=== PATIENT | female | born 1940 | race Caucasian/White ===

== ENCOUNTER 2016-10-11 20:00 | Observation (INO) | payer MEDICARE, MEDICAID ==
[~2016-10-11] VITALS: Ht 162.6 cm; Wt 50.5 kg
[~2016-10-11 20:00] MED LIST: AMLO10TA3; ATOR40TA69 PO; BISM262T15 PO; CITA10TA9 PO; LISI40TA PO; LORA-302 PO
[2016-10-11 20:20] VITALS: BP 189/97; PULSE 79; RESP 14; O2SAT 97
--- NOTE | 2016-10-11 20:28 | ED.REPORT ---
HPI-General Illness Date of Service Oct 11, 2016 ED Provider: Brisa Zaragoza MD This is a 75 year old female history of hypertension, hyperlipidemia, depression , chronic kidney disease brought to the ED by EMS complaining of visual hallucinations that began today. Pt states she normally experiences auditory hallucinations but had visual hallucinations which she has never experienced previously. State she saw a "creature with some kind of costume." She thought the hallucination was real and saw the creature for a few minutes, the creature then "went out the door." Denies suicidal ideation or homicidal ideation. Denies pain. Pt recently started Seroquel. Nursing Notes Stated Complaint: HALLUCINATING Chief Complaint: General Complaint Nursing Notes Reviewed: Yes Allergies: Coded Allergies: diazepam (Verified Allergy, Unknown, 05/25/16) Scheduled Amlodipine (Amlodipine) 10 Mg Tablet 10 MG DAILY Atorvastatin Calcium (Atorvastatin Calcium) 40 Mg Tablet 40 MG PO HS Citalopram (Citalopram) 10 Mg Tablet 10 MG PO DAILY Lisinopril (Lisinopril) 40 Mg Tablet 40 MG PO DAILY Scheduled PRN Bismuth Subsalicylate (Pepto-Bismol) 262 Mg Tab.chew 262 MG PO PRN PRN PRN For Diarrhea or Loose Stool Lorazepam (Ativan) 0.5 Mg Tablet 0.5 MG PO PRN For Anxiety General Time Seen by MD: 20:22 Chief Complaint Other Hx Obtained From: Patient Arrived By: Walk-in Sudden in Onset?: Yes Onset Occurred: 5 - 8 hours ago Symptom Duration: Since onset Severity: Current: No pain currently Pertinent Negative: Pt denies other symptoms Recent Healthcare: No recent doctor visit, No recent hospitalization Similar Sx Previous: No Past Medical History Past Medical History history of acute kidney injury with hyperkalemia, with suspected baseline chronic kidney disease Reports: Hyperlipidemia, Hypertension Reports: Depression Past Surgical History Reports: Tubal ligation Smoking History Former Smoker Social History Alcohol Use: Denies alcohol use Other Social History: Lives alone, Local resident Ambulatory Status Independent Review of Systems Full Review of Systems Constitutional: Denies: Chills, Fever Respiratory: Denies: Shortness of breath Cardiovascular: Denies: Chest pain GI: Denies: Abdominal pain, Nausea, Vomiting Neurologic: Denies: Headache Psychiatric: Reports: Hallucinations, auditory, Hallucinations, visual Complete sys rev & neg: except as marked. Physical Exam Vital Signs Vital Signs Date Time Temp Pulse Resp B/P Pulse Ox O2 Delivery O2 Flow Rate FiO2 10/11/16 20:20 36.5 79 14 189/97 97 Room Air Initial VS: Reviewed ENT: Mucous membranes moist, Conjunctiva normal, No scleral icterus Neck: Supple, Non-tender, Full range of motion Respiratory: Breath sounds normal, Clear to auscultation, No respiratory distress Cardiovascular: Regular rate & rhythm, Heart sounds normal, Intact distal pulses Abdomen / GI: Soft, Non-tender, No guarding, No rebound, No distention Extremities: Vascular intact, Neuro intact, No swelling, No tenderness Skin: Warm, Dry, No cyanosis Neurologic: Alert, Oriented, Nonfocal General/Constitutional: Awake Psychiatric: Not suicidal, Not homicidal Interpretation & Diagnostics Interpretation & Diagnostics: CHEST X-RAY IMPRESSION: No acute cardiopulmonary disease. Dictated by: Luis Alberto Brandt M.D. on 10/11/2016 at 21:28 Approved by: Luis Alberto Brandt M.D. on 10/11/2016 at 21:[address] IMPRESSION: 1. No acute intracranial abnormalities. 2. Multiple nonacute bilateral basal ganglia lacunar infarcts. Dictated by: Luis Alberto Brandt M.D. on 10/11/2016 at 21:47 Approved by: Luis Alberto Brandt M.D. on 10/11/2016 at 21:49 Lab Results Interpretation Result Diagram: 10/11/16211510/11/162115 Test 10/11/16 20:37 10/11/16 21:12 10/11/16 21:16 Hold Urine Received (Received) Urine Color Straw (YELLOW) Urine Appearance Clear (CLEAR,HAZY) Urine pH 7.0 (5.0-8.0) Urine Specific Sidell 1.015 (1.003-1.035) Urine Protein Negativemg/dL (NEG,TRACE) Urine Glucose (UA) Negativemg/dL (NEGATIVE) Urine Ketones Negativemg/dL (NEGATIVE) Urine Occult Blood Trace (NEGATIVE) Urine Nitrite Negative (NEGATIVE) Urine Bilirubin Negative (NEGATIVE) Urine Urobilinogen Normalmg/dL (NORMAL) Urine Leukocyte Esterase Small (NEGATIVE) Urine RBC 0-2/hpf (0-2) Urine WBC 0-5/hpf (0-5) Urine Epithelial Cells Few/hpf (NONE-MOD) Urine Crystals None seen (NONE SEEN) Urine Bacteria Few/hpf (NONE-FEW) Urine Hyaline Casts None/lpf (NONE) Urine Granular Casts None seen (NONE SEEN) Urine Waxy Casts None seen (NONE SEEN) Urine Red Blood Cell Casts None seen (NONE SEEN) Urine White Blood Cell Casts None seen (NONE SEEN) Urine Mucus None seen (None Seen) Urine Trichomonas None seen (NONE SEEN) Urine Yeast None (NONE SEEN) Urinalysis Comment Amorphous sediment Urine Culture Reflexed Indicated White Blood Count 6.3th/mm3 (3.8-10.1) Red Blood Count 4.70mil/mm3 (3.90-5.20) Hemoglobin 13.5g/dL (12.0-15.6) Hematocrit 40.5% (35.0-46.0) Mean Corpuscular Volume 86.2fL (81-100) Mean Corpuscular Hemoglobin 28.7pg (27.0-35.0) Mean Corpuscular Hemoglobin Concent 33.3% (32.0-37.0) Red Cell Distribution Width 12.8% (12.3-15.4) Platelet Count 233bil/L (150-400) Neutrophils (%) (Auto) 59.9% (40-74) Lymphocytes (%) (Auto) 26.6% (14-46) Monocytes (%) (Auto) 9.9% (4-12) Eosinophils (%) (Auto) 2.9% (0-5) Basophils (%) (Auto) 0.5% (0-3) Hold Blue Top Tube Received (Received) Sodium Level 140mEq/L (134-144) Potassium Level 3.4mEq/L (3.5-5.2) Chloride Level 100mEq/L (97-108) Carbon Dioxide Level 25mmol/L (18-29) Blood Urea Nitrogen 18mg/dL (8-27) Creatinine 0.70mg/dL (0.57-1.00) Estimat Glomerular Filtration Rate 117mL/min (>59) Glucose Level 170mg/dL (60-99) Calcium Level 9.2mg/dL (8.5-10.1) Total Bilirubin 0.3mg/dL (0.0-1.2) Aspartate Amino Transf (AST/SGOT) 19U/L (0-50) Alanine Aminotransferase (ALT/SGPT) 13U/L (0-32) Alkaline Phosphatase 134U/L (25-165) Total Protein 6.9g/dL (6.4-8.4) Albumin 3.9g/dL (3.4-5.0) Hold Rojas Top Tube Received (Received) Re-Eval/Medical Decision Med Decision/Clinical Course 75-year-old female with past medical history of hypertension and hyperlipidemia along with psychiatric disorder who was recently started on Seroquel here with visual hallucination which is not normal for her. Differential diagnosis includes but is not limited to urinary tract infection versus pneumonia versus electrolyte abnormality versus brain mass. Chest x-rays unremarkable. Brain CT shows multiple remote lacunar infarcts but nothing acute. CBC and CMP are unremarkable, and there is no evidence of urinary tract infection. Patient lives alone, and has no family. At this time, given her social situation, I do not feel she is safe to go home. She has been admitted by hospitalist to workup for delirium. She is aware and amenable to admission. Time of Eval: 22:52 Re-Evaluation/Progress Note: Discussed lab and imaging results. Plan for admission Consultation : Referral / Consult Name: Xavier Crum MD Consulted With: Hospitalist Call Returned at: 22:47 Vocational Technical Education Director: Accepts admit Counseled Regarding: Diagnosis, Lab results, Need for follow-up, Need for admission Discharge & Departure Primary Impression: Visual hallucination Disposition: ADMITTED TO HOSPITAL Discharge Condition All VS Reviewed: Yes Condition: Stable Referrals: Walker Miller DO (PCP) Scribe Attestation Portions of this note were transcribed by Alvin Harvey. I, Dr. Zaragoza personally performed the history, physical exam and medical decision-making; I reviewed and confirmed the accuracy of the information in the transcribed note. Signed by: Alvin Harvey. 10/11/2016, 23:00. Brisa Zaragoza MD Oct 11, 2016 20:28 ALVIN HARVEY Oct 11, 2016 20:34
[2016-10-11 21:24] LABS: BASOPHILS % (AUTO) 0.5 % (0-3); EOSINOPHILS % (AUTO) 2.9 % (0-5); MONOCYTES % (AUTO) 9.9 % (4-12); Mean Corpuscular Hemoglobin 28.7 pg (27.0-35.0); Mean Corpuscular Volume 86.2 fL (81-100); NEUTROPHILS % (AUTO) 59.9 % (40-74); Platelet Count 233 bil/L (150-400)
[2016-10-11 21:30] LABS: APPEARANCE,URINE CLEAR (CLEAR,HAZY); COLOR,URINE STRAW (YELLOW); OCCULT BLOOD,URINE TRACE (NEGATIVE); UROBILINOGEN,URINE NORMAL (NORMAL)
--- NOTE | 2016-10-11 21:34 | DRSVH ---
PROCEDURE: X-RAY CHEST ONE VIEW, PORTABLE ([id number]) INDICATIONS: 75 year-old female with altered mental status and hallucinations. TECHNIQUE: One view of the chest was acquired. COMPARISON: [facility], CR, XR CHEST 1VW (PORTABLE), 06/17/2016, 11:18. FINDINGS: Surgical changes and devices: None. Lungs and pleura: No pleural effusions or pneumothorax. Lungs are clear. Mediastinum: Mediastinal contours appear normal. Heart size is normal. There is aortic atheroscler osis. Bones and chest wall: No suspicious bony lesions. Overlying soft tissues appear unremarkable. IMPRESSION: No acute cardiopulmonary disease. Dictated by: Luis Alberto Brandt M.D. on 10/11/2016 at 21:28 Approved by: Luis Alberto Brandt M.D. on 10/11/2016 at 21:28
--- NOTE | 2016-10-11 21:56 | DRSVH ---
PROCEDURE: CT BRAIN WITHOUT CONTRAST ([id number]) INDICATIONS: 75 year-old female with visual hallucinations. TECHNIQUE: Noncontrast 4.5 mm thick angled axial sections acquired from the foramen magnum to the vertex, with c oronal reformats. COMPARISON: None. FINDINGS: Image quality: Excellent. CSF spaces: Basal cisterns are patent. No extra-axial fluid collections. The ventricles are symmet alonso in size and shape. Brain: No intracranial bleeds or masses. There are mild periventricular and deep white matter chron ic small vessel ischemic changes. Multiple small bilateral nonacute basal ganglia lacunar infarcts a re present. There is intracranial internal carotid and vertebral artery atherosclerosis. Skull and face: Calvarium and visualized facial bones appear intact, without suspicious lesions. Sinuses: Visualized sinuses and mastoids are clear. IMPRESSION: 1. No acute intracranial abnormalities. 2. Multiple nonacute bilateral basal ganglia lacunar infarcts. Dictated by: Luis Alberto Brandt M.D. on 10/11/2016 at 21:47 Approved by: Luis Alberto Brandt M.D. on 10/11/2016 at 21:49
[2016-10-12] MEDS ORDERED: Alum-Mag Hydrox-Simeth 30 mL Suspension PO PRN ×2 (00:05→01:30)
[2016-10-12] MEDS ORDERED: Ondansetron 2 mg/mL 2 mL Inj IVPUSH PRN ×2 (00:05→01:30)
--- NOTE | 2016-10-12 00:30 | NUR ---
Admit Received report from Grazyna SMITH RN, pt arrived via [employer], transferred sba/1pa w/cane to bed. Dx Visual hallucinations, R/T UTI vs new start on Seroquel! Currently w/o visual hallucinations though states does suffer from auditory hallucinations.Skin unremarkable, slightly [place], some missing teeth, and wears glasses , admission complete w/exception of med rec wasn't able to bring list she has at [facility]. here to assess Addendum: 10/12/16 at 0219 by PRIMO GRECO RN New orders for P.O. K+ and prn labetalol SBP> 165 @ >190 given first dose
[2016-10-12 00:35] VITALS: BP 195/93; PULSE 73; RESP 18; O2SAT 95
[2016-10-12] MEDS ORDERED: Polyethylene Glycol (PEG) 17 Gm Powder PO PRN (01:30)
[2016-10-12] MEDS ORDERED: Labetalol 5 mg/mL 4 mL Inj IVPUSH ONE (01:40)
[2016-10-12] MEDS ORDERED: Potassium Chloride 20 mEq SR Tablet PO ONE (01:45)
[2016-10-12] MEDS ORDERED: Glucose 40% Oral Gel 15 Gm Tube PO PRN (01:45)
--- NOTE | 2016-10-12 02:00 | PCM.HPMED ---
Subjective Date of Service Oct 12, 2016 Primary Provider: Admitting Physician: Xavier Crum MD Primary Care Physician: Walker Miller DO Attending Physician: Xavier Crum MD Admit Status: From the Emergency Department Chief Complaint: Visual hallucination, lives alone by herself History of Present Illness: This is a 75 Y/O Fwith Hx of HTN on amlodipine 10 mg daily, and lisinopril 40 mg tablets daily, hyperlipidemia currently not on statin medication, depression/ anxiety on citalopram and recently stopped Seroquel, and chronic kidney disease , who presented to the [facility] ED by EMS with complaint of visual hallucinations and set today. Of note Pt states she normally experiences auditory hallucinations. She denies ever having experienced visual hallucinations in the past however. Patient states that she saw two young people dressed in what she described as an opaque plastic costume. She states that the individuals were somehow not visible and yet she knew they were there because she heard them whispering. " She thought the hallucination was real and lasted a Denies suicidal ideation or homicidal ideation. Pt recently started Seroquel about 3 weeks. She states that the medication was giving her nightmares, she states that the Seroquel caused her to have suicidal ideation. Prior however stopped the medication just yesterday. Patient has described constipation for the past 2 days and last bowel movement was 2 days ago. She states that she has been experiencing headaches with last one occurring just yesterday. Patient currently denies pain, suicidal ideation, fevers, cough, nausea, vomiting, abdominal pain. Vital signs in ED, temperature 86.5, pulse 79, blood pressure 189/97, respiratory rate 14, pulse ox 97% on room air. Hemogram: WBCs 6.3, hemoglobin 13.5, hematocrit 40.5, platelets 233 Chemistry panel: Potassium low at 3.4, glucose high at 170, creatinine 0.70, sodium 140, chloride 100, CO2 25, calcium 9.2, otherwise normal chemistry panel UA significant for trace occult blood, small leukocyte esterase, few epithelial cells, few bacteria. Chest x-ray showed no acute cardiopulmonary disease, Brain CT no acute intracranial abnormality,multiple nonacute bilateral basal ganglia lacunar infarcts Review of Systems: A comprehensive review of systems was conducted and was negative except as mentioned in history of present illness. Allergies Coded Allergies: diazepam (Verified Allergy, Unknown, 05/25/16) Home Medications Amlodipine (Amlodipine) 10 Mg Tablet 10 MG DAILY Atorvastatin Calcium (Atorvastatin Calcium) 40 Mg Tablet 40 MG PO HS Citalopram (Citalopram) 10 Mg Tablet 10 MG PO DAILY Lisinopril (Lisinopril) 40 Mg Tablet 40 MG PO DAILY Scheduled PRN Bismuth Subsalicylate (Pepto-Bismol) 262 Mg Tab.chew 262 MG PO PRN PRN PRN For Diarrhea or Loose Stool Lorazepam (Ativan) 0.5 Mg Tablet 0.5 MG PO PRN For Anxiety PMH History of acute kidney injury with hyperkalemia, with suspected baseline chronic kidney disease Hyperlipidemia, Hypertension Depression Auditory hallucinations Agoraphobia anxiety Surgical History Tubal ligation Social History Hx Alcohol Use: No Hx Substance Use: No Smoking Status: Former Smoker Living Arrangement: Alone Exam Vital Signs Vital Sign - Last Date Time Temp Pulse Resp B/P Pulse Ox O2 Delivery O2 Flow Rate FiO2 10/11/16 20:20 36.5 79 14 189/97 97 Room Air Exam General: Thin appearing female who appears stated age, alert and oriented 3, in no acute distress, somewhat anxious but resting comfortably in bed. HEENT: Normocephalic atraumatic, eyes PERRLA, EOMI, neck soft, nontender, no masses, no JVD, no adenopathy not, no thyromegaly, throat noninjected, no erythema Lungs: Lungs clear to auscultation all padilla bilaterally Heart: Regular rate rhythm no murmur Abdomen: Soft nontender, normal bowel tones, Genitourinary: No suprapubic tenderness Extremities: No edema, pulses equal in upper/lower extremity bilaterally Neurologic: Cranial nerves II through XII grossly intact, patient is speaking in full sentences, Skin: Cool to the touch and dry Psychiatric: Mood and affect are congruent, patient seems mildly anxious, Lab and Diagnostics Result Diagram: 10/11/16211510/11/162115 X-Rays, CTs and MRIs CHEST X-RAY IMPRESSION: No acute cardiopulmonary disease. Dictated by: Luis Alberto Brandt M.D. on 10/11/2016 at 21:28 Approved by: Luis Alberto Brandt M.D. on 10/11/2016 at 21:[address] IMPRESSION: 1. No acute intracranial abnormalities. 2. Multiple nonacute bilateral basal ganglia lacunar infarcts. Dictated by: Luis Alberto Brandt M.D. on 10/11/2016 at 21:47 Approved by: Luis Alberto Brandt M.D. on 10/11/2016 at 21:49 12-lead ECG Assessment & Plan This is a 75 year old female history of hypertension, hyperlipidemia, depression , chronic kidney disease complaining of visual hallucinations that began today. Patient was admitted for acute encephalopathy, hypertensive urgency with blood pressures systolic 195, hypokalemia and UTI. # Acute encephalopathy, present on admission, active - Differential diagnosis is medication related, psychiatric, urinary tract infection, hypertensive urgency - Patient states she had visual hallucinations today's after recently starting medications Seroquel. Patient describes hallucination as creature that she is saw in her house but appeared real. - Chest x-ray showed no acute cardiopulmonary disease, - Brain CT no acute intracranial abnormality,multiple nonacute bilateral basal ganglia lacunar infarcts - Patient states she stopped Seroquel yesterday. Will continue to hold Seroquel for now. - UA was positive for small "blood, trace leukocyte esterase, few bacteria - Urine culture pending - Blood culture pending - Admit to for observation overnight - Consider psychiatric consultation in the morning - Consider social work consultation in the morning # Hypertensive urgency, present on admission, active - Blood pressure 189 systolic - Repeat blood pressure was 195/53 - We will continue home medications amlodipine 10 mg daily - Continue home medication lisinopril 40 mg tablet daily - We will start IV labetalol 10 mg to start, and will repeat 10 mg in 30 minutes if not improved goal blood pressure less than 165 systolic # UTI, present on admission, active - UA was positive for small "blood, trace leukocyte esterase, few bacteria - Urine culture pending - We will hold off on antibiotic until culture results. # Hypokalemia, present on admission, active - potassium 3.4 - We will replete potassium 40 mg by mouth # Hyperglycemia, present on admission, chronicity unknown, active - Blood glucose 170 - Low dose correctional insulin Other chronic problems History of acute kidney injury with hyperkalemia, with suspected baseline chronic kidney disease - Hyperlipidemia, -We will continue home medication atorvastatin 40 mg tablets Hypertension - We will continue home medication as stated above Depression - We will hold Seroquel - Continue medications citalopram 10 mg tablet daily History of Auditory hallucinations Disposition:Admitted to in patient service with expected length of stay greater than 2 days, secondary to severity of presenting symptoms, treatment plan, complexity of clinical work up, and risk of adverse events. CODE STATUS: Full code PCP: Dr. Miller DVT PE prophylaxis: Subcutaneous heparin Attending Statement The patient was seen and examined together with Dr. Hameed on 10/11 and I agree with the history, exam and plan as outlined in the note above. Luis Hameed DO Oct 12, 2016 00:58 Xavier Crum MD Oct 12, 2016 02:53
[2016-10-12 03:04] VITALS: BP 154/80
[2016-10-12 04:37] VITALS: BP 153/79; PULSE 69; RESP 18; O2SAT 99
[2016-10-12 07:30] LABS: BASOPHILS % (AUTO) 0.5 % (0-3); EOSINOPHILS % (AUTO) 3.2 % (0-5); MONOCYTES % (AUTO) 11.6 % (4-12); Mean Corpuscular Hemoglobin 28.8 pg (27.0-35.0); Mean Corpuscular Volume 86.1 fL (81-100); NEUTROPHILS % (AUTO) 55.8 % (40-74); Platelet Count 217 bil/L (150-400)
[2016-10-12] MEDS: Insulin LISPRO 300 Unit/3 mL Inj SUBQ SCH ×2 (08:00→11:52)
[2016-10-12] MEDS ORDERED: Heparin 5,000 Unit/mL Inj SUBQ SCH (08:30)
[2016-10-12] MEDS ORDERED: QUET25TA73 PO (09:13)
[2016-10-12] MEDS ORDERED: METO25TA6 PO (09:13)
[2016-10-12] MEDS ORDERED: DOCU240C41 PO (09:13)
--- NOTE | 2016-10-12 09:16 | NUR ---
Hallucinations Pt denies visual hallucinations currently. Reports the last time she has visual hallucinations was yesterday afternoon. Pt reports continued auditory hallucinations. Reports hearing voices and reports "they told me they wanted yogurt this morning". Patient later called nurse into room to report the voices were telling her "they wanted to kill themselves". Pt reports the voices sometimes say "bad things like they want to , I tell them you can't...you aren't real." Pt reports no thoughts of harming herself. Hospitalist will be updated at morning rounds.
[2016-10-12 09:44] VITALS: BP 132/66; PULSE 74; RESP 18; O2SAT 95
[2016-10-12] MEDS ORDERED: CITA10TA9 PO (09:44)
--- NOTE | 2016-10-12 11:04 | NUR ---
Case Management: CISSE given and explained to pt at 10:55. Vanessa RUTLEDGE, RN
--- NOTE | 2016-10-12 14:06 | NUR ---
Faxed DSHS form to [facility] and requested 1600 tile picker in room 250-1 Updated METAL CASKET ASSEMBLER Addendum: 10/12/16 at 1447 by TIGIST MEDINA CM Patient is not eligible for D[facility]S transport, called [employer] and schedule 1600 tile picker in main lobby. Updated METAL CASKET ASSEMBLER
[2016-10-12] MEDS ORDERED: LORazepam 0.5 mg Tablet PO PRN (15:25)
--- NOTE | 2016-10-12 15:26 | NUR ---
Social Work Note Initial Assessment/Mental Health Assessment: 250-1 D/A: See Initial Assessment. The Pt is a 75 y/o female that was admitted under observation status on 10/11/2016 for visual hallucinations. Her PCP is DO Walker Miller and her insurance is Medicare with a DSHS supplement, no LTC or VA benefits. EMR reviewed. MARS met with the Pt at bedside to discuss role and explore discharge planning. The Pt lives alone in an apartment on the first floor in [place]. She reports that she does not have a DPOA and denied the need for paperwork. The Pt stated that she has four children living in the state with her youngest daughter Casandra [phone] being her primary support. The Pt reports that her apartment managers Kong and Jeannette Raygoza are also extremely supportive and are caring for her dog. The Pt uses a cane and has had [facility] in the past, no SNF history. The Pt pays for private caregiving services and is in the process of setting up [facility], caregivers name is Karlie Hamm [phone]. The Pt reports paying privately for this caregiver about 1x/week for various needs. MARS attempted to call [facility] to inquire about the Pts status, voicemail left. The Pt reports utilizing [employer] and has a counselor in [facility]. MARS attempted to follow up with Dai at [phone], counselor is not available until December. MARS attempted to contact [facility] temporary replacement Michelle at [phone], voicemail left. MARS also attempted to call the Pts daughter Casandra, voicemail left. MARS received call from the Pts son Falguni at [phone]. MARS informed son that the Pt will likely be discharged today with transportation assistance. MARS informed son that SW was in contact with [facility] and the Pts temporary counselor for additional assistance and is waiting their return calls. MARS attempted to contact the Pts daughter Casandra again, left message. MARS t/c from son Falguni and provided all D/C recommendations to include the Pts temporary counselors information. MARS requested [facility] transportation for Pt, transportation denied. MARS explored other transportation options and she reported that she could private pay for a cab. Cab transportation requested with [employer] for 4pm. Reason for Hospital Visit: Visual Hallucinations Current Mental Status: The Pt is AO x4. Her eye contact and speech are within normal limits. Her mood and affect are also within normal limits and overall she is quite friendly and cooperative during the assessment. The Pt reports a history of auditory hallucinations over the past year with an increase over the last two months. She reports that they are not usually commanding but have been during these last couple of months, asking her to get them things. The Pt stated that they do not ask her to hurt herself or others. The Pt reports having a visual hallucination for the first time recently of young people in [facility]. The Pt denies SI/HI. Psychiatric History/Treatment: The Pt sees Dai Sood for counseling in [place] 1x/month. She reports that she is on multiple types of medication for mental health concerns, unable to provide brand names. Recent H&P states that the Pt is on Citalopram for depression and anxiety and that she has recently stopped Seroquel. Chemical Dependency History/Treatment/Tox Screen: Unknown, u-tox negative for any substances. Legal History: Unknown. Suicide Risk: The Pt is not endorsing SI nor HI at this time. Disposition/Plan: Pt is not an imminent danger to self or others. Pt continues to endorse auditory hallucinations but the visual ones have subsided. Hallucinations are commanding but do not pose a danger or threat to pt or others. Social Work discussed with who agrees with plan to discharge home. Pt to discharge home today via private pay [employer] at 4pm. Pt encouraged to follow-up with her PCP regarding medication and her counselor for new visual hallucinations. Pt reports PCP appointment on 10/25/2016. No additional needs anticipated at this time. AINSLEY Holcomb Osd Clerk AINSLEY Herrera Addendum: 10/12/16 at 1529 by TATA FRIEDMAN Amended: Links added. Addendum: 10/12/16 at 1616 by TATA FRIEDMAN SS SW informed that the Pt's cab was late and requested for SW to contact [facility]. [facility] contacted and stated that they were not informed about this request. SW contacted [facility] for assistance. [facility] reported that they will be able to pickle maker the Pt within 20 minutes. AINSLEY Holcomb Osd Clerk
--- NOTE | 2016-10-12 15:31 | PCM.DIMED ---
Discharge Instructions Date of Service Oct 12, 2016 Dates of Hospitalization Oct 11, 2016 at 23:20 Discharge Diagnosis Discharge Diagnosis Auditory and Visual Hallucinations Diet Heart Healthy Activity No restrictions (May resume usual activity gradually as tolerated.) Call your provider Fever or Chills, Shortness of breath, Bleeding, Chest pain, Vomitting, Excessive diarrhea, Weakness (unilateral), Other (Visual Hallucinations) Homero Alcantar MD Oct 12, 2016 15:31
--- NOTE | 2016-10-12 15:42 | PCM.DIMED ---
Discharge Instructions Date of Service Oct 12, 2016 Dates of Hospitalization Oct 11, 2016 at 23:20 Discharge Diagnosis Discharge Diagnosis Auditory and Visual Hallucinations Diet Heart Healthy Activity No restrictions (May resume usual activity gradually as tolerated.) Call your provider Fever or Chills, Shortness of breath, Bleeding, Chest pain, Vomitting, Excessive diarrhea, Weakness (unilateral), Other (Visual Hallucinations) Patient Instructions Follow-up Provider: Walker Miller DO Follow-up with PCP in: 1 week Follow-up in: 1 week (Follow up with Amaris Beltran (clinical psychologist)) Homero Alcantar MD Oct 12, 2016 15:41
--- NOTE | 2016-10-12 16:58 | NUR ---
Discharge Patient left floor with UA at 1600 to meet cab at front of hospital to be driven home. IV d/c'd intact. All d/c information discussed and understood by pt including medications and follow up appointments.
--- NOTE | 2016-10-13 00:50 | PCM.DC.MED ---
Discharge Summary Date of Service Oct 12, 2016 Dates of Hospitalization Date of Hospital Admission Oct 11, 2016 at 23:20 Date of Discharge: Oct 12, 2016 Providers: Admitting Physician: Xavier Crum MD Primary Care Physician: Walker Miller DO Attending Physician: Xavier Crum MD Diagnosis at Time of Discharge Diagnosis at Time of Discharge Auditory and Visual Hallucinations Procedures XRay, CTs & MRIs CHEST X-RAY IMPRESSION: No acute cardiopulmonary disease. Dictated by: Luis Alberto Brandt M.D. on 10/11/2016 at 21:28 Approved by: Luis Alberto Brandt M.D. on 10/11/2016 at 21:[address] IMPRESSION: 1. No acute intracranial abnormalities. 2. Multiple nonacute bilateral basal ganglia lacunar infarcts. Dictated by: Luis Alberto Brandt M.D. on 10/11/2016 at 21:47 Approved by: Luis Alberto Brandt M.D. on 10/11/2016 at 21:49 ECG 12 Lead Brief History This is a 75 Y/O Fwith Hx of HTN on amlodipine 10 mg daily, and lisinopril 40 mg tablets daily, hyperlipidemia currently not on statin medication, depression/ anxiety on citalopram and recently stopped Seroquel, and chronic kidney disease , who presented to the [facility] ED by EMS with complaint of visual hallucinations and set today. Of note Pt states she normally experiences auditory hallucinations. She denies ever having experienced visual hallucinations in the past however. Patient states that she saw two young people dressed in what she described as an opaque plastic costume. She states that the individuals were somehow not visible and yet she knew they were there because she heard them whispering. " She thought the hallucination was real and lasted a Denies suicidal ideation or homicidal ideation. Pt recently started Seroquel about 3 weeks. She states that the medication was giving her nightmares, she states that the Seroquel caused her to have suicidal ideation. Prior however stopped the medication just yesterday. Patient has described constipation for the past 2 days and last bowel movement was 2 days ago. She states that she has been experiencing headaches with last one occurring just yesterday. Patient currently denies pain, suicidal ideation, fevers, cough, nausea, vomiting, abdominal pain. Vital signs in ED, temperature 86.5, pulse 79, blood pressure 189/97, respiratory rate 14, pulse ox 97% on room air. Hemogram: WBCs 6.3, hemoglobin 13.5, hematocrit 40.5, platelets 233 Chemistry panel: Potassium low at 3.4, glucose high at 170, creatinine 0.70, sodium 140, chloride 100, CO2 25, calcium 9.2, otherwise normal chemistry panel UA significant for trace occult blood, small leukocyte esterase, few epithelial cells, few bacteria. Chest x-ray showed no acute cardiopulmonary disease, Brain CT no acute intracranial abnormality,multiple nonacute bilateral basal ganglia lacunar infarcts Patient was admitted to the hospital service for further evaluation and treatment. Hospital Course This is a 75 year old female history of hypertension, hyperlipidemia, depression , chronic kidney disease complaining of visual hallucinations that began today. Patient was admitted for acute encephalopathy, hypertensive urgency with blood pressures systolic 195, hypokalemia and UTI. # Acute encephalopathy, present on admission, active - Differential diagnosis is medication related, psychiatric, urinary tract infection, hypertensive urgency - Patient states she had visual hallucinations the day of admission after recently starting medications Seroquel. Patient describes a hallucination as a creature that she saw in her house, but it appeared real. She has had no further hallucinations after stopping Seroquel - Chest x-ray showed no acute cardiopulmonary disease, - Brain CT no acute intracranial abnormality,multiple nonacute bilateral basal ganglia lacunar infarcts - Patient states she stopped Seroquel yesterday. Will continue to hold Seroquel for now. - UA was positive for small "blood, trace leukocyte esterase, few bacteria - Urine culture negative - Blood culture is negative to date, but final culture is pending - Patient admitted for observation overnight - Consider psychiatric consultation as an outpatient - The social workers have consulted on the patient today and deemed that the patient is not suicidal nor homicidal. # Hypertensive urgency, present on admission, active - Blood pressure 189 systolic - Repeat blood pressure was 195/53 - We will continue home medications amlodipine 10 mg daily - Continue home medication lisinopril 40 mg tablet daily - We will start IV labetalol 10 mg to start, and will repeat 10 mg in 30 minutes if not improved goal blood pressure less than 165 systolic # UTI, present on admission, active - UA was positive for small "blood, trace leukocyte esterase, few bacteria - Urine culture pending - We will hold off on antibiotic until culture results. # Hypokalemia, present on admission, active - potassium 3.4 - We will replete potassium 40 mg by mouth # Hyperglycemia, present on admission, chronicity unknown, active - Blood glucose 170 - Low dose correctional insulin Other chronic problems History of acute kidney injury with hyperkalemia, with suspected baseline chronic kidney disease - Hyperlipidemia, -We will continue home medication atorvastatin 40 mg tablets Hypertension - We will continue home medication as stated above Depression - We will hold Seroquel - Continue medications citalopram 10 mg tablet daily History of Auditory hallucinations Disposition: Patient is to be discharged home today. She will be she is being discharged by a yellow cab that will take her directly home. CODE STATUS: Full code PCP: Dr. Miller DVT PE prophylaxis: Subcutaneous heparin Exam Vital Signs (Last) Date Time Temp Pulse Resp B/P Pulse Ox O2 Delivery O2 Flow Rate FiO2 10/12/16 09:44 36.7 74 18 132/66 95 Room Air Exam General: Patient is in no apparent distress. She appears somewhat cachectic. HEENT: Head is atraumatic and normocephalic. Eyes: Pupils are equally round and reactive to light and accommodation. Extraocular muscles are intact. Sclera are white, anicteric. Subconjunctival mucosa is pink. Ears and nose are unremarkable. Oropharynx: There is no mucosal lesions, there is no thrush, there is no pharyngitis. Neck: Is supple, there are no nodes, or masses or tenderness. Chest: Is clear to auscultation and percussion. There are no rales, rhonchi, wheezes or rubs. Heart: Rate, rhythm is regular. There is no murmur, rub or gallop. Abdomen: Good bowel sounds are present. Abdomen is soft, nontender, no organomegaly or masses were appreciated. Extremities: Are symmetrical and well perfused. There is no edema, there is no cellulitis, no rash. Neurologic: There are no focal neurological deficits. Cranial nerves II through XII are intact. There are no sensory or motor deficits. Psychiatric: Patients mood is calm and shows no sign of agitation. Genital: Deferred Rectal: Deferred Test 10/11/16 20:37 10/11/16 21:12 10/11/16 21:16 10/12/16 07:11 Hold Urine Received (Received) Urine Color Straw (YELLOW) Urine Appearance Clear (CLEAR,HAZY) Urine pH 7.0 (5.0-8.0) Urine Specific [place] 1.015 (1.003-1.035) Urine Protein Negativemg/dL (NEG,TRACE) Urine Glucose (UA) Negativemg/dL (NEGATIVE) Urine Ketones Negativemg/dL (NEGATIVE) Urine Occult Blood Trace (NEGATIVE) Urine Nitrite Negative (NEGATIVE) Urine Bilirubin Negative (NEGATIVE) Urine Urobilinogen Normalmg/dL (NORMAL) Urine Leukocyte Esterase Small (NEGATIVE) Urine RBC 0-2/hpf (0-2) Urine WBC 0-5/hpf (0-5) Urine Epithelial Cells Few/hpf (NONE-MOD) Urine Crystals None seen (NONE SEEN) Urine Bacteria Few/hpf (NONE-FEW) Urine Hyaline Casts None/lpf (NONE) Urine Granular Casts None seen (NONE SEEN) Urine Waxy Casts None seen (NONE SEEN) Urine Red Blood Cell Casts None seen (NONE SEEN) Urine White Blood Cell Casts None seen (NONE SEEN) Urine Mucus None seen (None Seen) Urine Trichomonas None seen (NONE SEEN) Urine Yeast None (NONE SEEN) Urinalysis Comment Amorphous sediment Urine Culture Reflexed Indicated Hold Blue Top Tube Received (Received) Hold Rojas Top Tube Received (Received) White Blood Count 4.4th/mm3 (3.8-10.1) Red Blood Count 4.45mil/mm3 (3.90-5.20) Hemoglobin 12.8g/dL (12.0-15.6) Hematocrit 38.3% (35.0-46.0) Mean Corpuscular Volume 86.1fL (81-100) Mean Corpuscular Hemoglobin 28.8pg (27.0-35.0) Mean Corpuscular Hemoglobin Concent 33.4% (32.0-37.0) Red Cell Distribution Width 12.9% (12.3-15.4) Platelet Count 217bil/L (150-400) Neutrophils (%) (Auto) 55.8% (40-74) Lymphocytes (%) (Auto) 28.9% (14-46) Monocytes (%) (Auto) 11.6% (4-12) Eosinophils (%) (Auto) 3.2% (0-5) Basophils (%) (Auto) 0.5% (0-3) Sodium Level 141mEq/L (134-144) Potassium Level 4.0mEq/L (3.5-5.2) Chloride Level 103mEq/L (97-108) Carbon Dioxide Level 25mmol/L (18-29) Blood Urea Nitrogen 15mg/dL (8-27) Creatinine 0.69mg/dL (0.57-1.00) Estimat Glomerular Filtration Rate 119mL/min (>59) Glucose Level 96mg/dL (60-99) Calcium Level 9.5mg/dL (8.5-10.1) Magnesium Level 2.2mg/dL (1.6-2.6) Total Bilirubin 0.3mg/dL (0.0-1.2) Aspartate Amino Transf (AST/SGOT) 17U/L (0-50) Alanine Aminotransferase (ALT/SGPT) 14U/L (0-32) Alkaline Phosphatase 130U/L (25-165) Total Protein 6.5g/dL (6.4-8.4) Albumin 3.9g/dL (3.4-5.0) Discharge Medications Discharge Medications Amlodipine (Amlodipine) 10 Mg Tablet 10 MG DAILY (Reported) Citalopram (Citalopram) 10 Mg Tablet 20 MG PO DAILY (Reported) Docusate Calcium (Stool Softener) 240 Mg Capsule Unknown Dose PO BID (Reported) Lisinopril (Lisinopril) 40 Mg Tablet 40 MG PO DAILY (Reported) Metoprolol Tartrate (Metoprolol Tartrate) 25 Mg Tablet 25 MG PO BID (Reported) As needed Lorazepam (Ativan) 0.5 Mg Tablet 0.5 MG PO DAILY PRN PRN For Anxiety (Reported) Followup Plan Disposition: Patient is being discharged home. Discharge Diet: Heart Healthy Discharge Activity: No restrictions (May resume usual activity gradually as tolerated.) Follow-up Provider: Walker Miller DO Follow-up with PCP in: 1 week Follow-up in: 1 week Time spent Time spent on discharging this patient was greater than 35 minutes, over half of which was involved in counseling and coordination of care. Homero Alcantar MD Oct 13, 2016 00:50
[2016-10-13] MEDS ORDERED: Lisinopril 40 Tablet PO SCH (08:30)
== END 2016-10-12 16:03 | disposition home or self-care (01) ==
LOC: SED 20:00 → MOC 23:20
PROVIDERS: ADMIT Hospitalist; ATTEND Hospitalist
DX: R44.0 Auditory hallucinations (principal); R44.1 Visual hallucinations; G93.40 Encephalopathy, unspecified; N39.0 Urinary tract infection, site not specified; E87.6 Hypokalemia; R73.9 Hyperglycemia, unspecified; I10 Essential (primary) hypertension; E78.5 Hyperlipidemia, unspecified; F41.8 Other specified anxiety disorders; N17.9 Acute kidney failure, unspecified; Z87.891 Personal history of nicotine dependence
CPT/HCPCS: 36415; 70450; 71010; 80053; 81000; 83036; 83735; 85025; 87040; 87086; 96374; 99285; G0378; J1644; J1815

== ENCOUNTER 2017-02-08 06:35 | Emergency (ER) | payer MEDICARE, MEDICAID ==
[~2017-02-08] VITALS: Ht 162.6 cm; Wt 52.7 kg
[~2017-02-08 06:35] MED LIST changes: -ATOR40TA69 PO; -BISM262T15 PO; +DOCU240C41 PO; +METO25TA6 PO
[2017-02-08 06:44] VITALS: BP 138/80; PULSE 79; RESP 16; O2SAT 95
--- NOTE | 2017-02-08 07:05 | ED.REPORT ---
HPI-Psychiatric Illness Date of Service Feb 08, 2017 ED Provider: Vitaly Birmingham MD Pt is a 76 year old female with a hx of depression, anxiety, HTN, Schizophrenia and hyperlipidemia presenting to the ED via EMS complaining of anxiety and trouble sleeping for the past few weeks. She reports that her daughter wanted her to come in because she was concerned about her anxiety. The pt reports that she does not like to be alone, and that she worries a lot. She does not report any recent stressors, and states that she has been doing okay medically. Denies fever, any recent falls or other symptoms at this time. Pt last saw her counsellor 1 month ago. Pt takes Lorazepam daily, usually with relief. Nursing Notes Stated Complaint: ANXIETY Chief Complaint: Psychiatric Complaint Nursing Notes Reviewed: Yes ([employer] not reconciled) Allergies: Coded Allergies: diazepam (Verified Allergy, Unknown, 05/25/16) Scheduled Amlodipine (Amlodipine) 10 Mg Tablet 10 MG DAILY Citalopram (Citalopram) 10 Mg Tablet 20 MG PO DAILY Citalopram (Citalopram) 10 Mg Tablet 30 MG PO DAILY Docusate Calcium (Stool Softener) 240 Mg Capsule Unknown Dose PO BID Lisinopril (Lisinopril) 40 Mg Tablet 40 MG PO DAILY Metoprolol Tartrate (Metoprolol Tartrate) 25 Mg Tablet 25 MG PO BID Scheduled PRN Lorazepam (Ativan) 0.5 Mg Tablet 0.5 MG PO DAILY PRN PRN For Anxiety General Time Seen by MD: 06:52 Chief Complaint Anxious Hx Obtained From: Patient Arrived By: Ambulance Onset Occurred: More than a week ago... (3 weeks) Symptom Duration: Since onset Progression Since Onset: Constant Severity: Current: No pain currently Severity: Maximum: No pain Recent Healthcare: No recent doctor visit, No recent hospitalization Similar Sx Previous: Yes Risk-Psychiatric Illness Suicide Risk Stratification Suicide Risk Factors - Adult: : Prior psych admissionNo: Access to firearms, Alcohol use, Close associate suicide, Family Hx of Suicide, Previous attempt, Substance abuse RF Statements: Risk factors reviewed Past Medical History Past Medical History Notes: Admitted October 2016 for auditory and visual hallucinations Saw PCP Reinier Miller 12/26/16 - Citalopram increased to 20mg daily, with notes for possible further increase if needed to be considered Past Medical History history of acute kidney injury with hyperkalemia, with suspected baseline chronic kidney disease History of agorophobia History depression History of anxiety History of auditory hallucinations History of adverse reaction with worsening hallucinations using Seroquel (see admit 10/2016) Schizophrenia Reports: Hyperlipidemia, Hypertension Reports: Depression Past Surgical History Reports: Tubal ligation Smoking History Former Smoker Social History Alcohol Use: Denies alcohol use Other Social History: Lives alone, Local resident Ambulatory Status Independent Review of Systems Neurologic: Denies: Headache Psychiatric: Reports: Anxiety, Insomnia, Denies: Homicidal ideation, Suicidal ideation Complete sys rev & neg: except as marked. Musculoskeletal: Denies: Extremity pain Physical Exam Initial Vital Signs Vital Signs (First) Date Time Temp Pulse Resp B/P Pulse Ox O2 Delivery O2 Flow Rate FiO2 02/08/17 06:44 36.9 79 16 138/80 95 Room Air Initial VS: Reviewed, Vital signs normal Head / Eyes: Atraumatic, Normocephalic, PERRL ENT: Mucous membranes moist, Conjunctiva normal, No scleral icterus Respiratory: Breath sounds normal, Clear to auscultation, No respiratory distress Cardiovascular: Regular rate & rhythm, Heart sounds normal, Intact distal pulses Abdomen / GI: Soft, Non-tender, No guarding, No rebound, No distention Extremities: Vascular intact, Neuro intact, No swelling, No tenderness Skin: Warm, Dry, No cyanosis General/Constitutional: Awake, Alert, No acute distress Neurologic: Oriented X3, Speech NL, No motor deficits, No sensory deficits, Memory NL Psychiatric: Not suicidal, Not homicidal, Judgment/insight NL Abnormal Mood/Affect: Positive: Flat affect Interpretation & Diagnostics Lab Results Interpretation Result Diagram: 02/08/17 0740 02/08/17 0740 Test 02/08/17 07:30 02/08/17 07:40 02/08/17 09:38 Hold Urine Received (Received) White Blood Count 8.4th/mm3 (3.8-10.1) Red Blood Count 4.95mil/mm3 (3.90-5.20) Hemoglobin 14.5g/dL (12.0-15.6) Hematocrit 43.5% (35.0-46.0) Mean Corpuscular Volume 87.9fL (81-100) Mean Corpuscular Hemoglobin 29.3pg (27.0-35.0) Mean Corpuscular Hemoglobin Concent 33.3% (32.0-37.0) Red Cell Distribution Width 13.3% (12.3-15.4) Platelet Count 237bil/L (150-400) Neutrophils (%) (Auto) 75.2% (40-74) Lymphocytes (%) (Auto) 14.3% (14-46) Monocytes (%) (Auto) 8.8% (4-12) Eosinophils (%) (Auto) 1.4% (0-5) Basophils (%) (Auto) 0.2% (0-3) Sodium Level 139mEq/L (134-144) Potassium Level 3.6mEq/L (3.5-5.2) Chloride Level 99mEq/L (97-108) Carbon Dioxide Level 25mmol/L (18-29) Blood Urea Nitrogen 24mg/dL (8-27) Creatinine 1.13mg/dL (0.57-1.00) Estimat Glomerular Filtration Rate 67mL/min (>59) Glucose Level 115mg/dL (60-99) Calcium Level 10.1mg/dL (8.5-10.1) Total Bilirubin 0.4mg/dL (0.0-1.2) Aspartate Amino Transf (AST/SGOT) 16U/L (0-50) Alanine Aminotransferase (ALT/SGPT) 12U/L (0-32) Alkaline Phosphatase 118U/L (25-165) Total Protein 7.3g/dL (6.4-8.4) Albumin 3.8g/dL (3.4-5.0) Thyroid Stimulating Hormone (TSH) 1.330uIU/mL (0.450-4.500) Lab Results Interpretation: CBC normal CMP normal Urine dip marginally positive, patient with no urinary symptoms-UA ordered Re-Eval/Medical Decision Med Decision/Clinical Course This is a 76-year-old female presents complaining of anxiety and loneliness. She reports a component of depression, but denies any suicidal or homicidal ideation. She reports she has a history of anxiety, her doctors recently put her on citalopram and increase the dose to 20 mg a little over a month ago with the plan for further increases if needed. The patient reports she just feels anxious, she called family about 4 times yesterday, and it felt increasing anxiety last night-she did take a lorazepam and now feels better, but reports because of the worsening symptoms she reports her family directed to come in to seek further assistance. She reports she is doing well at the moment. She appears fatigued, but no distress. She has no hard findings on physical exam, has normal vitals, soft nontender abdomen. She denies alcohol or recreational drug use. Screening labs were normal. Please see the SAFETY INVESTIGATOR/CAUSE ANALYST notes. Records do confirm plan increase citalopram if needed. The patient does not report her hospitalization, is comfortable going home. I have written to increase the dose of citalopram to 30 mg daily, have written a #9010 mg tabs to facilitate this use. The patient's to reschedule another follow up with the PCP. She is continue work with a counselor, continue work with her caretakers. She is discharged in stable condition Source of Hx: Old records, EMS Re-Evaluation/Progress : Time of Eval: 11:11 Patient Status: Condition improved Re-Evaluation/Progress Note: Discussed plan for discharge. Pt understands and agrees with plan. Differential Diagnosis: Positive: Anxiety, Depression, Negative: Alcohol abuse, Bipolar disorder, Homicidal, Polysubstance abuse, Schizophrenia, Substance abuse, Suicidal Counseled Regarding: Diagnosis, Lab results, Need for follow-up, When/why to return to ED Discharge & Departure Impression: Primary Impression: Anxiety Additional Impression: Acute situational disturbance )( Condition at Discharge: No danger to self, No danger to others, No suicidal ideation, No homicidal ideation Disposition: Home Discharge Condition All VS Reviewed: Yes Condition: Improved Additional Instructions: 1. Increase your citalopram from 20mg once a day to 30mg once day. (I have written a prescription containing ninety 10 mg tabs to make it easier to take this dose) 2. Continue your other medications. 3. Continue to work with your counselor. 4. Your blood tests are normal. 5. Return if new or worsening symptoms. 6. Call to schedule a recheck with your doctor in 2 weeks. Referrals: Walker Miller DO (PCP) [employer] Att[employer] Portions of this note were transcribed by Hanny Gilman. I, Dr. Birmingham personally performed the history, physical exam and medical decision-making; I reviewed and confirmed the accuracy of the information in the transcribed note. Signed by: Humberto Camarillo, 02/08/2017 at 1130. copies to: Walker Miller Matthew F MD Feb 08, 2017 07:05 HANNY GILMAN Feb 08, 2017 07:30
[2017-02-08 08:00] LABS: BASOPHILS % (AUTO) 0.2 % (0-3); EOSINOPHILS % (AUTO) 1.4 % (0-5); MONOCYTES % (AUTO) 8.8 % (4-12); Mean Corpuscular Hemoglobin 29.3 pg (27.0-35.0); Mean Corpuscular Volume 87.9 fL (81-100); NEUTROPHILS % (AUTO) 75.2 % (40-74); Platelet Count 237 bil/L (150-400)
[2017-02-08] MEDS ORDERED: CITA10TA9 PO (10:53)
[2017-02-08 11:20] VITALS: BP 159/96; PULSE 95; O2SAT 97
== END 2017-02-08 11:46 | disposition home or self-care (01) ==
LOC: SED 06:35
DX: F41.9 Anxiety disorder, unspecified (principal); F43.0 Acute stress reaction; F32.9 Major depressive disorder, single episode, unspecified; I12.9 Hypertensive chronic kidney disease with stage 1 through stage 4 chronic kidney disease, or unspecified chronic kidney disease; F20.9 Schizophrenia, unspecified; E78.5 Hyperlipidemia, unspecified; N18.9 Chronic kidney disease, unspecified; Z87.891 Personal history of nicotine dependence; Z88.8 Allergy status to other drugs, medicaments and biological substances

== ENCOUNTER 2017-03-26 15:47 | Emergency (ER) | payer MEDICARE, MEDICAID ==
[~2017-03-26] VITALS: Ht 162.6 cm; Wt 52.7 kg
[2017-03-26 15:53] VITALS: BP 169/77; PULSE 67; RESP 19; O2SAT 97
--- NOTE | 2017-03-26 16:11 | ED.REPORT ---
HPI-General Illness Date of Service Mar 26, 2017 ED Provider: Donald Hilliard MD Pt is a 76 y/o female w/ a hx of CKD, depression, anxiety, schizophrenia, presenting to the ED via EMS with vague complaints of feeling unwell for 1 year. She states there are no acute complaints. For 1 year she has been experiencing poor appetite, fatigue, constipation, depression. She denies CONNELL, CP , SOB, cough, fever, abdominal pain, nausea, vomiting, dysuria, bloody stools, diarrhea, SI, HI. The patient lives by herself with her dog. Nursing Notes Stated Complaint: GENERALIZED WEAKNESS Chief Complaint: General Complaint Nursing Notes Reviewed: Yes Allergies: Coded Allergies: diazepam (Verified Allergy, Unknown, 05/25/16) Scheduled Amlodipine (Amlodipine) 10 Mg Tablet 10 MG DAILY Citalopram (Citalopram) 10 Mg Tablet 20 MG PO DAILY Citalopram (Citalopram) 10 Mg Tablet 30 MG PO DAILY Docusate Calcium (Stool Softener) 240 Mg Capsule Unknown Dose PO BID Lisinopril (Lisinopril) 40 Mg Tablet 40 MG PO DAILY Metoprolol Tartrate (Metoprolol Tartrate) 25 Mg Tablet 25 MG PO BID Scheduled PRN Lorazepam (Ativan) 0.5 Mg Tablet 0.5 MG PO DAILY PRN PRN For Anxiety General Time Seen by MD: 16:06 Chief Complaint Not feeling well Hx Obtained From: Patient, EMS Arrived By: Ambulance Onset Occurred: More than a week ago... (>6 months) Symptom Duration: Since onset Severity: Current: No pain currently Severity: Maximum: No pain Similar Sx Previous: Yes Past Medical History Past Medical History Notes: Admitted October 2016 for auditory and visual hallucinations Saw PCP Reinier Miller 12/26/16 - Citalopram increased to 20mg daily, with notes for possible further increase if needed to be considered Past Medical History history of acute kidney injury with hyperkalemia, with suspected baseline chronic kidney disease History of agoraphobia History depression History of anxiety History of auditory hallucinations History of adverse reaction with worsening hallucinations using Seroquel (see admit 10/2016) Schizophrenia Reports: Hyperlipidemia, Hypertension Reports: Depression Past Surgical History Reports: Tubal ligation Smoking History Former Smoker Social History Alcohol Use: Denies alcohol use Other Social History: Lives alone, Local resident Ambulatory Status Independent Review of Systems Full Review of Systems Constitutional: Reports: Fatigue, Weakness - generalized, Denies: Chills, Fever Respiratory: Denies: Non-productive cough, Shortness of breath Cardiovascular: Denies: Chest pain GI: Reports: Anorexia, Denies: Abdominal pain, Bloody/tarry stool, Constipation, Diarrhea, Nausea, Vomiting Female: Denies: Dysuria Musculoskeletal: Denies: Back pain Neurologic: Denies: Headache Complete sys rev & neg: except as marked. Physical Exam Vital Signs Vital Signs Date Time Temp Pulse Resp B/P Pulse Ox O2 Delivery O2 Flow Rate FiO2 03/26/17 19:21 74 16 95/51 98 Room Air 03/26/17 15:53 36.6 67 19 169/77 97 Room Air Initial VS: Reviewed, Vital signs abnormal Head / Eyes: Atraumatic, Normocephalic, PERRL ENT: Mucous membranes moist, Conjunctiva normal, No scleral icterus Neck: Supple, Full range of motion Respiratory: Breath sounds normal, Clear to auscultation, No respiratory distress Cardiovascular: Regular rate & rhythm, Heart sounds normal, Intact distal pulses Abdomen / GI: Soft, Non-tender, No guarding, No rebound, No distention Extremities: Vascular intact, Neuro intact, No swelling Skin: Warm, Dry, No cyanosis Neurologic: Alert, Oriented, Nonfocal Psychiatric: Mood/affect normal, Behavior normal, Normal thought content General/Constitutional: Awake, Alert, No acute distress, Cooperative, Not toxic appearing Interpretation & Diagnostics Lab Results Interpretation Result Diagram: 03/26/17 1621 03/26/17 1621 Test 03/26/17 16:21 03/26/17 17:46 White Blood Count 6.8th/mm3 (3.8-10.1) Red Blood Count 4.39mil/mm3 (3.90-5.20) Hemoglobin 12.9g/dL (12.0-15.6) Hematocrit 38.7% (35.0-46.0) Mean Corpuscular Volume 88.2fL (81-100) Mean Corpuscular Hemoglobin 29.4pg (27.0-35.0) Mean Corpuscular Hemoglobin Concent 33.3% (32.0-37.0) Red Cell Distribution Width 13.2% (12.3-15.4) Platelet Count 207bil/L (150-400) Neutrophils (%) (Auto) 66.1% (40-74) Lymphocytes (%) (Auto) 20.0% (14-46) Monocytes (%) (Auto) 11.5% (4-12) Eosinophils (%) (Auto) 1.9% (0-5) Basophils (%) (Auto) 0.4% (0-3) Sodium Level 135mEq/L (134-144) Potassium Level 4.1mEq/L (3.5-5.2) Chloride Level 96mEq/L (97-108) Carbon Dioxide Level 21mmol/L (18-29) Blood Urea Nitrogen 29mg/dL (8-27) Creatinine 1.23mg/dL (0.57-1.00) Estimat Glomerular Filtration Rate 61mL/min (>59) Glucose Level 96mg/dL (60-99) Lactic Acid Level 1.2mmol/L (0.4-2.0) Calcium Level 10.2mg/dL (8.5-10.1) Magnesium Level 2.1mg/dL (1.6-2.6) Total Bilirubin 0.6mg/dL (0.0-1.2) Aspartate Amino Transf (AST/SGOT) 17U/L (0-50) Alanine Aminotransferase (ALT/SGPT) 11U/L (0-32) Alkaline Phosphatase 102U/L (25-165) Total Protein 7.2g/dL (6.4-8.4) Albumin 3.7g/dL (3.4-5.0) Urine Color Yellow (YELLOW) Urine Appearance Clear (CLEAR,HAZY) Urine pH 5.5 (5.0-8.0) Urine Specific [place] 1.020 (1.003-1.035) Urine Protein Negativemg/dL (NEG,TRACE) Urine Glucose (UA) Negativemg/dL (NEGATIVE) Urine Ketones Negativemg/dL (NEGATIVE) Urine Occult Blood Negative (NEGATIVE) Urine Nitrite Negative (NEGATIVE) Urine Bilirubin Negative (NEGATIVE) Urine Urobilinogen Normalmg/dL (NORMAL) Urine Leukocyte Esterase Moderate (NEGATIVE) Urine RBC 0-2/hpf (0-2) Urine WBC 0-5/hpf (0-5) Urine Epithelial Cells Few/hpf (NONE-MOD) Urine Crystals None seen (NONE SEEN) Urine Bacteria Few/hpf (NONE-FEW) Urine Hyaline Casts None/lpf (NONE) Urine Granular Casts None seen (NONE SEEN) Urine Waxy Casts None seen (NONE SEEN) Urine Red Blood Cell Casts None seen (NONE SEEN) Urine White Blood Cell Casts None seen (NONE SEEN) Urine Mucus None seen (None Seen) Urine Trichomonas None seen (NONE SEEN) Urine Yeast None (NONE SEEN) Urinalysis Comment None Urine Culture Reflexed Indicated ECG Interpretation ECG Interpretation: Sinus rhythm rate 69 LVH Time: 17:41 Interpreted by: ED physician Normal ECG Interpretation: No acute ischemic changes, No change from prior ECGs X-Ray Chest Interpretation Chest Xray Interpretation: IMPRESSION: Heart size at upper limits of normal, mild interstitial prominence but no definite acute CHF. Dictated by: Kong Dhillon M.D. on 03/26/2017 at 16:55 Approved by: Kong Dhillon M.D. on 03/26/2017 at 16:56 View: Portable, 1 view Interpretation / Wet Read by: Interpret - Radiologist Re-Eval/Medical Decision Med Decision/Clinical Course 76-year-old female history of schizophrenia, depression, CK D complaining of fatigue and decreased appetite for one year. No recent changes. Her labs are unremarkable. Her vital signs are stable. Exam is quite reassuring. Patient was discharged home in the care of her caregiver with social work follow-up return precautions given. Counseled Regarding: Diagnosis, Lab results, Need for follow-up, When/why to return to ED Discharge & Departure Primary Impression: Chronic fatigue Disposition: Home Discharge Condition All VS Reviewed: Yes Condition: Stable Patient Instructions: Chronic Fatigue Syndrome (ED) Additional Instructions: There are no emergent findings for your chronic fatigue. Labs today were reassuring. I recommend you discuss these problems with your primary care doctor this week. Further evaluation may be indicated at that time. Return to the emergency department if you experience chest pain, abdominal pain , vomiting, fever, shortness of breath, or for other concerning symptoms. Referrals: Walker Miller DO (PCP) Humberto Attestation Portions of this note were transcribed by Sam Guillen. I, Dr. Hilliard personally performed the history, physical exam and medical decision-making; I reviewed and confirmed the accuracy of the information in the transcribed note. Signed by Humberto Chi, 7/25/20 - [id number] copies to: Walker Miller Ben M MD Mar 26, 2017 16:11 SAM GUILLEN Mar 26, 2017 16:18
[2017-03-26 16:32] LABS: BASOPHILS % (AUTO) 0.4 % (0-3); EOSINOPHILS % (AUTO) 1.9 % (0-5); MONOCYTES % (AUTO) 11.5 % (4-12); Mean Corpuscular Hemoglobin 29.4 pg (27.0-35.0); Mean Corpuscular Volume 88.2 fL (81-100); NEUTROPHILS % (AUTO) 66.1 % (40-74); Platelet Count 207 bil/L (150-400)
--- NOTE | 2017-03-26 16:58 | DRSVH ---
PROCEDURE: X-RAY CHEST ONE VIEW, PORTABLE ([id number]) INDICATIONS: SOB TECHNIQUE: One view of the chest was acquired. COMPARISON: [facility], CR, XR CHEST 1VW (PORTABLE), 10/11/2016, 21:03. [facility], CR, XR CHEST 1VW (PORTABLE), 06/17/2016, 11:18. FINDINGS: Surgical changes and devices: None. Lungs and pleura: No pleural effusions or pneumothorax. Lungs are unchanged with a slight interstit ial prominence. Mediastinum: Mediastinal contours appear normal. Heart size is mildly prominent in size but likely at the upper limits of normal rather than truly enlarged. Bones and chest wall: No suspicious bony lesions. Overlying soft tissues appear unremarkable. IMPRESSION: Heart size at upper limits of normal, mild interstitial prominence but no definite acute CHF. Dictated by: Kong Dhillon M.D. on 03/26/2017 at 16:55 Approved by: Kong Dhillon M.D. on 03/26/2017 at 16:56
[2017-03-26 17:05] LABS: Magnesium 2.1 mg/dL (1.6-2.6)
[2017-03-26 18:08] LABS: APPEARANCE,URINE CLEAR (CLEAR,HAZY); COLOR,URINE YELLOW (YELLOW); OCCULT BLOOD,URINE NEGATIVE (NEGATIVE); PH,URINE 5.5 (5.0-8.0); UROBILINOGEN,URINE NORMAL (NORMAL)
[2017-03-26 19:21] VITALS: BP 95/51; PULSE 74; RESP 16; O2SAT 98
== END 2017-03-26 19:22 | disposition home or self-care (01) ==
LOC: EDBD 15:47 → SED 15:47
DX: R53.82 Chronic fatigue, unspecified (principal); F41.8 Other specified anxiety disorders; K59.00 Constipation, unspecified; R63.0 Anorexia; I12.9 Hypertensive chronic kidney disease with stage 1 through stage 4 chronic kidney disease, or unspecified chronic kidney disease; N18.9 Chronic kidney disease, unspecified; F20.9 Schizophrenia, unspecified; E78.5 Hyperlipidemia, unspecified; Z87.891 Personal history of nicotine dependence; Z88.8 Allergy status to other drugs, medicaments and biological substances